=== PATIENT | male | born 1990 | race Caucasian/White ===

== ENCOUNTER 2017-11-23 11:31 | Inpatient (IN) | payer OTHER ==
[2017-11-23] MEDS: ONDANSETRON 4 MG INJ IV (12:58)
[2017-11-23] MEDS: HYDROmorphONE 1 MG/ML SYG IV (12:58)
[2017-11-23] MEDS: VANCOMYCIN 1 GM (PMX) 250 ML IVPB (12:58)
[2017-11-23 13:12] LABS: ADD MAN DIFF? NO
[2017-11-23 13:13] LABS: BASOPHILS % 0.4 % (0.0-2.0); HEMATOCRIT 37.3 % (42.0-52.0); HEMOGLOBIN 12.1 g/dl (14.0-18.0); LYMPHOCYTES # 1.4 10^3/ul (0.8-2.9); LYMPHOCYTES % 19.9 % (15.0-51.0); MEAN CORPUSCULAR HEMOGLOBIN 31.1 pg (29.0-33.0); MEAN CORPUSCULAR HGB CONC 32.4 g/dl (32.0-37.0); MEAN CORPUSCULAR VOLUME 95.9 fl (82.0-101.0); MEAN PLATELET VOLUME 9.2 fl (7.4-10.4); MONOCYTE # 0.8 10^3/ul (0.3-0.9); MONOCYTES % 11.6 % (0.0-11.0); NEUTROPHIL # 4.7 10^3/ul (1.6-7.5); NEUTROPHILS % 67.7 % (39.0-77.0); PLATELET COUNT 348 10^3/UL (140-415); RED BLOOD COUNT 3.89 10^6/ul (4.70-6.10); RED CELL DISTRIBUTION WIDTH 13.2 % (11.5-14.5)
[2017-11-23 13:13] LABS: WHITE BLOOD COUNT 6.9 10^3/ul (4.8-10.8)
[2017-11-23] MEDS ORDERED: ACETAMINOPHEN 325 MG TAB PO (13:30)
[2017-11-23] MEDS ORDERED: ONDANSETRON 4 MG INJ IV ×2 (13:30→15:00)
[2017-11-23 13:32] LABS: ALANINE AMINOTRANSFERASE 45 IU/L (13-69); ALBUMIN 3.6 g/dl (3.3-4.9); ALBUMIN/GLOBULIN RATIO 0.85; ALKALINE PHOSPHATASE 84 IU/L (42-121); ASPARTATE AMINO TRANSFERASE 22 IU/L (15-46); BILIRUBIN,INDIRECT 0.4 mg/dl (0-1.1); BILIRUBIN,TOTAL 0.4 mg/dl (0.2-1.3); BLOOD UREA NITROGEN 14 mg/dl (7-20); CARBON DIOXIDE 35 mmol/L (21-31); CHLORIDE 101 mmol/L (97-110); CREATININE 0.57 mg/dl (0.61-1.24); GLUCOSE 97 mg/dl (70-220); POTASSIUM 4.6 mmol/L (3.5-5.1); SODIUM 141 mmol/L (135-144); TOTAL PROTEIN 7.8 g/dl (6.1-8.1)
[2017-11-23] MEDS: SOD CHLORIDE 0.9% 1,000 ML IV (14:21)
[2017-11-23] MEDS: CEFEPIME 2GM/50 ML (PMX) 50 ML IVPB (15:00)
[2017-11-23] MEDS ORDERED: NACL 0.9% 3 ML SYG IV (15:00)
[2017-11-23] MEDS ORDERED: HYDROCODONE/APAP (5/325) TAB PO (15:00)
[2017-11-23 19:43] LABS: INR 1.06; PROTIME 13.9 Sec (11.9-14.9); PT RATIO 1.1
[2017-11-24] MEDS: SOD CHLORIDE 0.9% 1,000 ML IV (00:35)
[2017-11-24] MEDS ORDERED: VANCOMYCIN IV PER PHARMACY XX (04:00)
[2017-11-24] MEDS ORDERED: PENDING SANTYL ORDER FOR WOUND CARE XX (04:00)
[2017-11-24] MEDS: VANCOMYCIN 1.5 GM in SOD CHLORIDE 0.9% 250 ML IVPB (05:33)
[2017-11-24 07:00] LABS: ADD MAN DIFF? NO
[2017-11-24 07:07] LABS: BASOPHILS % 0.7 % (0.0-2.0); HEMATOCRIT 35.9 % (42.0-52.0); HEMOGLOBIN 11.6 g/dl (14.0-18.0); LYMPHOCYTES # 1.8 10^3/ul (0.8-2.9); LYMPHOCYTES % 32.4 % (15.0-51.0); MEAN CORPUSCULAR HEMOGLOBIN 31.2 pg (29.0-33.0); MEAN CORPUSCULAR HGB CONC 32.3 g/dl (32.0-37.0); MEAN CORPUSCULAR VOLUME 96.5 fl (82.0-101.0); MEAN PLATELET VOLUME 9.5 fl (7.4-10.4); MONOCYTE # 0.6 10^3/ul (0.3-0.9); MONOCYTES % 10.5 % (0.0-11.0); NEUTROPHIL # 3.1 10^3/ul (1.6-7.5); PLATELET COUNT 358 10^3/UL (140-415); RED BLOOD COUNT 3.72 10^6/ul (4.70-6.10); RED CELL DISTRIBUTION WIDTH 13.4 % (11.5-14.5)
[2017-11-24 07:07] LABS: WHITE BLOOD COUNT 5.5 10^3/ul (4.8-10.8)
[2017-11-24 07:30] LABS: ALANINE AMINOTRANSFERASE 39 IU/L (13-69); ALBUMIN 2.9 g/dl (3.3-4.9); ALKALINE PHOSPHATASE 65 IU/L (42-121); ASPARTATE AMINO TRANSFERASE 23 IU/L (15-46); BILIRUBIN,INDIRECT 0.5 mg/dl (0-1.1); BILIRUBIN,TOTAL 0.5 mg/dl (0.2-1.3); BLOOD UREA NITROGEN 12 mg/dl (7-20); CALCIUM 9.4 mg/dl (8.4-10.2); CARBON DIOXIDE 34 mmol/L (21-31); CHLORIDE 104 mmol/L (97-110); GLUCOSE 85 mg/dl (70-220); MAGNESIUM 2.2 mg/dl (1.7-2.5); PHOSPHORUS 4.6 mg/dl (2.5-4.9); POTASSIUM 5.3 mmol/L (3.5-5.1); SODIUM 140 mmol/L (135-144); TOTAL PROTEIN 6.5 g/dl (6.1-8.1)
[2017-11-24 07:46] LABS: FREE THYROXINE INDEX (Calc) 2.73 ug/ml (0.65-3.89); T3 UPTAKE 36.4 % (23.5-40.5); T4 (THYROXINE) 7.5 ug/dl (5.5-11.0)
[2017-11-24 08:03] LABS: HEMOGLOBIN A1C 5.1 % (0-5.9)
[2017-11-24] MEDS: VENLAFAXINE 25 MG TAB PO (09:08)
[2017-11-24] MEDS: INFLUENZA VIRUS VACCINE 0.5 ML (DISPENSING) IM* (09:13)
[2017-11-24 09:16] LABS: ANION GAP 5 (5-13)
[2017-11-24 09:31] LABS: ANION GAP 2 (5-13)
[2017-11-24] MEDS ORDERED: VANCOMYCIN 1 GM 250 ML IVPB (13:00)
[2017-11-24] MEDS: CEFEPIME 1GM/50 ML (PMX) 50 ML IVPB ×2 (14:52→22:03)
[2017-11-24] MEDS: VANCOMYCIN 1.25 GM in SOD CHLORIDE 0.9% 250 ML IVPB ×2 (15:22→22:36)
[2017-11-25 05:13] LABS: ADD MAN DIFF? NO
[2017-11-25 05:19] LABS: WHITE BLOOD COUNT 6.2 10^3/ul (4.8-10.8)
[2017-11-25 05:19] LABS: BASOPHILS % 0.6 % (0.0-2.0); HEMATOCRIT 35.8 % (42.0-52.0); HEMOGLOBIN 11.7 g/dl (14.0-18.0); LYMPHOCYTES % 31.7 % (15.0-51.0); MEAN CORPUSCULAR HEMOGLOBIN 30.9 pg (29.0-33.0); MEAN CORPUSCULAR HGB CONC 32.7 g/dl (32.0-37.0); MEAN CORPUSCULAR VOLUME 94.5 fl (82.0-101.0); MEAN PLATELET VOLUME 9.1 fl (7.4-10.4); MONOCYTE # 0.6 10^3/ul (0.3-0.9); MONOCYTES % 9.5 % (0.0-11.0); NEUTROPHIL # 3.6 10^3/ul (1.6-7.5); NEUTROPHILS % 57.6 % (39.0-77.0); PLATELET COUNT 391 10^3/UL (140-415); RED BLOOD COUNT 3.79 10^6/ul (4.70-6.10); RED CELL DISTRIBUTION WIDTH 13.2 % (11.5-14.5)
[2017-11-25 05:45] LABS: VANCOMYCIN,TROUGH 15.1 ug/ml (10.0-20.0)
[2017-11-25 05:54] LABS: ALANINE AMINOTRANSFERASE 36 IU/L (13-69); ALBUMIN 3.6 g/dl (3.3-4.9); ALBUMIN/GLOBULIN RATIO 0.92; ALKALINE PHOSPHATASE 72 IU/L (42-121); ANION GAP 8 (5-13); ASPARTATE AMINO TRANSFERASE 16 IU/L (15-46); BILIRUBIN,INDIRECT 0.3 mg/dl (0-1.1); BILIRUBIN,TOTAL 0.3 mg/dl (0.2-1.3); BLOOD UREA NITROGEN 10 mg/dl (7-20); CALCIUM 9.3 mg/dl (8.4-10.2); CARBON DIOXIDE 29 mmol/L (21-31); CHLORIDE 106 mmol/L (97-110); CREATININE 0.61 mg/dl (0.61-1.24); GLUCOSE 91 mg/dl (70-220); POTASSIUM 4.3 mmol/L (3.5-5.1); SODIUM 143 mmol/L (135-144); TOTAL PROTEIN 7.5 g/dl (6.1-8.1)
[2017-11-25 05:56] LABS: PHOSPHORUS 4.9 mg/dl (2.5-4.9)
[2017-11-25 05:56] LABS: MAGNESIUM 2.2 mg/dl (1.7-2.5)
[2017-11-25] MEDS: VANCOMYCIN 1.25 GM in SOD CHLORIDE 0.9% 250 ML IVPB ×3 (06:16→21:15)
[2017-11-25] MEDS: CEFEPIME 1GM/50 ML (PMX) 50 ML IVPB (09:02)
[2017-11-25] MEDS: VENLAFAXINE 25 MG TAB PO (09:02)
[2017-11-25] MEDS: CIPROFLOXACIN 500 MG TAB PO (18:12)
[2017-11-26 05:30] LABS: ADD MAN DIFF? NO
[2017-11-26 05:33] LABS: WHITE BLOOD COUNT 6.1 10^3/ul (4.8-10.8)
[2017-11-26 05:33] LABS: BASOPHILS % 0.7 % (0.0-2.0); HEMATOCRIT 35.8 % (42.0-52.0); HEMOGLOBIN 11.6 g/dl (14.0-18.0); LYMPHOCYTES # 2.2 10^3/ul (0.8-2.9); LYMPHOCYTES % 36.2 % (15.0-51.0); MEAN CORPUSCULAR HEMOGLOBIN 30.9 pg (29.0-33.0); MEAN CORPUSCULAR HGB CONC 32.4 g/dl (32.0-37.0); MEAN CORPUSCULAR VOLUME 95.5 fl (82.0-101.0); MEAN PLATELET VOLUME 9.1 fl (7.4-10.4); MONOCYTE # 0.6 10^3/ul (0.3-0.9); MONOCYTES % 9.4 % (0.0-11.0); NEUTROPHIL # 3.3 10^3/ul (1.6-7.5); NEUTROPHILS % 53.4 % (39.0-77.0); PLATELET COUNT 417 10^3/UL (140-415); RED BLOOD COUNT 3.75 10^6/ul (4.70-6.10); RED CELL DISTRIBUTION WIDTH 13.2 % (11.5-14.5)
[2017-11-26] MEDS: CIPROFLOXACIN 500 MG TAB PO ×2 (05:36→17:56)
[2017-11-26] MEDS: VANCOMYCIN 1.25 GM in SOD CHLORIDE 0.9% 250 ML IVPB ×3 (05:37→22:00)
[2017-11-26 06:03] LABS: ALANINE AMINOTRANSFERASE 32 IU/L (13-69); ALBUMIN 3.8 g/dl (3.3-4.9); ALBUMIN/GLOBULIN RATIO 1.02; ALKALINE PHOSPHATASE 74 IU/L (42-121); ANION GAP 8 (5-13); ASPARTATE AMINO TRANSFERASE 14 IU/L (15-46); BILIRUBIN,INDIRECT 0.2 mg/dl (0-1.1); BILIRUBIN,TOTAL 0.2 mg/dl (0.2-1.3); BLOOD UREA NITROGEN 16 mg/dl (7-20); CALCIUM 9.5 mg/dl (8.4-10.2); CARBON DIOXIDE 31 mmol/L (21-31); CHLORIDE 106 mmol/L (97-110); CREATININE 0.82 mg/dl (0.61-1.24); GLUCOSE 105 mg/dl (70-220); POTASSIUM 4.5 mmol/L (3.5-5.1); SODIUM 145 mmol/L (135-144); TOTAL PROTEIN 7.5 g/dl (6.1-8.1)
[2017-11-26] MEDS: VENLAFAXINE 25 MG TAB PO ×2 (09:00→09:23)
[2017-11-26] MEDS ORDERED: FENTAnyl 50 MCG/ML VIAL ×2 (15:07→15:09)
[2017-11-26] MEDS ORDERED: ONDANSETRON 4 MG INJ (15:11)
[2017-11-26] MEDS ORDERED: MIDAZOLAM 1 MG/ML 2 ML INJ (15:15)
[2017-11-26] MEDS ORDERED: VANCOMYCIN 1 GM INJ (16:49)
[2017-11-26] MEDS ORDERED: TOBRAMYCIN 1.2 GM POWDER (16:49)
[2017-11-26] MEDS ORDERED: ROPIVACAINE 0.5 % 30 ML VIAL (17:16)
[2017-11-26] MEDS ORDERED: IPRATROPIUM (NEB) 0.5 MG/2.5 ML AMP HHN (17:30)
[2017-11-26] MEDS ORDERED: FENTAnyl 50 MCG/ML VIAL IV ×2 (17:30)
[2017-11-26] MEDS ORDERED: ONDANSETRON 4 MG INJ IV (17:30)
[2017-11-26] MEDS ORDERED: DIPHENHYDRAMINE 50 MG INJ IV (17:30)
[2017-11-26] MEDS ORDERED: MEPERIDINE 25 MG INJ IV (17:30)
[2017-11-26] MEDS ORDERED: LABETALOL HCL 20MG INJ IV (17:30)
[2017-11-26] MEDS ORDERED: HYDROmorphONE 1 MG/5 ML IV SYRINGE IV ×3 (17:30)
[2017-11-26] MEDS ORDERED: hydrALAzine 20 MG INJ IV (17:30)
[2017-11-26] MEDS: BUPIVACAINE 0.5% (SDV) 30 ML INJ (17:35)
[2017-11-26] MEDS: VANCOMYCIN 1 GM INJ (17:46)
[2017-11-26] MEDS ORDERED: BUPIVACAINE 0.5% (SDV) 30 ML INJ (18:18)
[2017-11-26] MEDS ORDERED: HYDROCODONE/APAP (10/325) TAB PO (18:30)
[2017-11-26] MEDS ORDERED: ONDANSETRON (ODT) 4 MG TAB ODT (18:30)
[2017-11-26] MEDS: LIDOCAINE 1% (MPF) 5 ML VIAL SC (20:05)
[2017-11-27 05:14] LABS: ADD MAN DIFF? NO
[2017-11-27 05:17] LABS: WHITE BLOOD COUNT 8.5 10^3/ul (4.8-10.8)
[2017-11-27 05:17] LABS: BASOPHILS % 0.5 % (0.0-2.0); HEMATOCRIT 35.1 % (42.0-52.0); HEMOGLOBIN 11.4 g/dl (14.0-18.0); MEAN CORPUSCULAR HEMOGLOBIN 30.9 pg (29.0-33.0); MEAN CORPUSCULAR HGB CONC 32.5 g/dl (32.0-37.0); MEAN CORPUSCULAR VOLUME 95.1 fl (82.0-101.0); MEAN PLATELET VOLUME 8.9 fl (7.4-10.4); MONOCYTES % 12.3 % (0.0-11.0); NEUTROPHIL # 5.4 10^3/ul (1.6-7.5); NEUTROPHILS % 63.8 % (39.0-77.0); PLATELET COUNT 415 10^3/UL (140-415); RED BLOOD COUNT 3.69 10^6/ul (4.70-6.10); RED CELL DISTRIBUTION WIDTH 13.2 % (11.5-14.5)
[2017-11-27] MEDS: CIPROFLOXACIN 500 MG TAB PO ×2 (05:42→17:19)
[2017-11-27] MEDS: VANCOMYCIN 1.25 GM in SOD CHLORIDE 0.9% 250 ML IVPB ×3 (05:45→14:09)
[2017-11-27 06:15] LABS: ALANINE AMINOTRANSFERASE 30 IU/L (13-69); ALBUMIN 3.1 g/dl (3.3-4.9); ALBUMIN/GLOBULIN RATIO 0.81; ALKALINE PHOSPHATASE 68 IU/L (42-121); ANION GAP 8 (5-13); ASPARTATE AMINO TRANSFERASE 18 IU/L (15-46); BILIRUBIN,INDIRECT 0.2 mg/dl (0-1.1); BILIRUBIN,TOTAL 0.2 mg/dl (0.2-1.3); BLOOD UREA NITROGEN 17 mg/dl (7-20); CALCIUM 9.5 mg/dl (8.4-10.2); CARBON DIOXIDE 30 mmol/L (21-31); CHLORIDE 105 mmol/L (97-110); CREATININE 0.91 mg/dl (0.61-1.24); GLUCOSE 93 mg/dl (70-220); POTASSIUM 4.7 mmol/L (3.5-5.1); SODIUM 143 mmol/L (135-144); TOTAL PROTEIN 6.9 g/dl (6.1-8.1)
[2017-11-27] MEDS: VENLAFAXINE 25 MG TAB PO (08:25)
[2017-11-27 13:54] LABS: VANCOMYCIN,TROUGH 17.6 ug/ml (10.0-20.0)
[2017-11-27] MEDS: VANCOMYCIN 1 GM 250 ML IVPB ×2 (14:39→21:46)
[2017-11-28 04:58] LABS: ADD MAN DIFF? NO
[2017-11-28 05:04] LABS: BASOPHIL # 0.1 10^3/ul (0.0-0.1); BASOPHILS % 0.7 % (0.0-2.0); HEMATOCRIT 34.2 % (42.0-52.0); LYMPHOCYTES % 26.1 % (15.0-51.0); MEAN CORPUSCULAR HEMOGLOBIN 31.1 pg (29.0-33.0); MEAN CORPUSCULAR HGB CONC 32.2 g/dl (32.0-37.0); MEAN CORPUSCULAR VOLUME 96.6 fl (82.0-101.0); MEAN PLATELET VOLUME 8.9 fl (7.4-10.4); MONOCYTE # 0.9 10^3/ul (0.3-0.9); MONOCYTES % 12.4 % (0.0-11.0); NEUTROPHIL # 4.5 10^3/ul (1.6-7.5); NEUTROPHILS % 60.1 % (39.0-77.0); PLATELET COUNT 393 10^3/UL (140-415); RED BLOOD COUNT 3.54 10^6/ul (4.70-6.10); RED CELL DISTRIBUTION WIDTH 13.5 % (11.5-14.5)
[2017-11-28 05:04] LABS: WHITE BLOOD COUNT 7.5 10^3/ul (4.8-10.8)
[2017-11-28 05:44] LABS: ALANINE AMINOTRANSFERASE 25 IU/L (13-69); ALBUMIN 3.1 g/dl (3.3-4.9); ALBUMIN/GLOBULIN RATIO 0.83; ALKALINE PHOSPHATASE 98 IU/L (42-121); ANION GAP 7 (5-13); ASPARTATE AMINO TRANSFERASE 15 IU/L (15-46); BILIRUBIN,INDIRECT 0.2 mg/dl (0-1.1); BILIRUBIN,TOTAL 0.2 mg/dl (0.2-1.3); BLOOD UREA NITROGEN 15 mg/dl (7-20); CALCIUM 9.4 mg/dl (8.4-10.2); CARBON DIOXIDE 30 mmol/L (21-31); CHLORIDE 107 mmol/L (97-110); CREATININE 0.82 mg/dl (0.61-1.24); GLUCOSE 119 mg/dl (70-220); POTASSIUM 4.1 mmol/L (3.5-5.1); SODIUM 144 mmol/L (135-144); TOTAL PROTEIN 6.8 g/dl (6.1-8.1)
[2017-11-28] MEDS: VANCOMYCIN 1 GM 250 ML IVPB ×3 (06:33→22:22)
[2017-11-28] MEDS: CIPROFLOXACIN 500 MG TAB PO ×2 (06:34→17:54)
[2017-11-28] MEDS: VENLAFAXINE 25 MG TAB PO (09:13)
[2017-11-28] MEDS: SOD CHLORIDE 0.9% 100 ML (11:40)
[2017-11-29] MEDS: CIPROFLOXACIN 500 MG TAB PO ×2 (05:26→17:20)
[2017-11-29 05:36] LABS: ADD MAN DIFF? NO
[2017-11-29 05:49] LABS: WHITE BLOOD COUNT 8.1 10^3/ul (4.8-10.8)
[2017-11-29 05:49] LABS: BASOPHILS % 0.5 % (0.0-2.0); HEMATOCRIT 34.6 % (42.0-52.0); HEMOGLOBIN 11.1 g/dl (14.0-18.0); LYMPHOCYTES # 2.1 10^3/ul (0.8-2.9); LYMPHOCYTES % 25.5 % (15.0-51.0); MEAN CORPUSCULAR HEMOGLOBIN 30.6 pg (29.0-33.0); MEAN CORPUSCULAR HGB CONC 32.1 g/dl (32.0-37.0); MEAN CORPUSCULAR VOLUME 95.3 fl (82.0-101.0); MONOCYTE # 0.8 10^3/ul (0.3-0.9); MONOCYTES % 10.1 % (0.0-11.0); NEUTROPHIL # 5.2 10^3/ul (1.6-7.5); NEUTROPHILS % 63.4 % (39.0-77.0); PLATELET COUNT 380 10^3/UL (140-415); RED BLOOD COUNT 3.63 10^6/ul (4.70-6.10); RED CELL DISTRIBUTION WIDTH 13.5 % (11.5-14.5)
[2017-11-29 06:13] LABS: ALANINE AMINOTRANSFERASE 22 IU/L (13-69); ALBUMIN 3.4 g/dl (3.3-4.9); ALBUMIN/GLOBULIN RATIO 1.03; ALKALINE PHOSPHATASE 64 IU/L (42-121); ANION GAP 11 (5-13); ASPARTATE AMINO TRANSFERASE 21 IU/L (15-46); BILIRUBIN,INDIRECT 0.3 mg/dl (0-1.1); BILIRUBIN,TOTAL 0.3 mg/dl (0.2-1.3); BLOOD UREA NITROGEN 14 mg/dl (7-20); CALCIUM 9.1 mg/dl (8.4-10.2); CARBON DIOXIDE 24 mmol/L (21-31); CHLORIDE 106 mmol/L (97-110); GLUCOSE 97 mg/dl (70-220); POTASSIUM 4.4 mmol/L (3.5-5.1); SODIUM 141 mmol/L (135-144); TOTAL PROTEIN 6.7 g/dl (6.1-8.1)
[2017-11-29 07:18] LABS: VANCOMYCIN,TROUGH 9.6 ug/ml (10.0-20.0)
[2017-11-29] MEDS: VANCOMYCIN 1 GM 250 ML IVPB (08:12)
[2017-11-29] MEDS: VENLAFAXINE 25 MG TAB PO (08:12)
[2017-11-29] MEDS ORDERED: VANCOMYCIN 1.25 GM in SOD CHLORIDE 0.9% 250 ML IVPB (16:00)
[2017-11-29] MEDS: AMPICILLIN 1 GM/NS (PMX) 50 ML IVPB (21:30)
[2017-11-30] MEDS: CIPROFLOXACIN 500 MG TAB PO ×2 (05:18→17:37)
[2017-11-30] MEDS: AMPICILLIN 1 GM/NS (PMX) 50 ML IVPB ×3 (05:18→21:38)
[2017-11-30] MEDS: VENLAFAXINE 25 MG TAB PO (09:21)
== END 2017-11-30 23:20 | disposition home or self-care (01) | DRG 504 ==
LOC: FTE 11:31 → PP2 13:19
PROC: 0QTP0ZZ Resection of Left Metatarsal, Open Approach (ICD-10-PCS; principal; 2017-11-26 17:18)
PROC: 02H633Z Insertion of Infusion Device into Right Atrium, Percutaneous Approach (ICD-10-PCS; 2017-11-26 17:18)
PROC: B54NZZA Ultrasonography of Left Upper Extremity Veins, Guidance (ICD-10-PCS; 2017-11-26 17:18)
DX: M86.8X7 Other osteomyelitis, ankle and foot (principal); L03.116 Cellulitis of left lower limb; R78.81 Bacteremia; Q05.4 Unspecified spina bifida with hydrocephalus
CPT/HCPCS: 36569; 71045; 73630-LT; 76937; 80053; 80202; 83036; 83735; 84100; 84436; 84479; 85025; 85610; 85730; 87040; 87070; 88307; 88311; 90686; 96365; 96375; 97116; 97161; 97530; 99285-25